=== PATIENT | female | born 1995 | race Caucasian/White ===

== ENCOUNTER → 2017-08-06 | Outpatient (CLI) | payer OTHER ==
--- NOTE | 2017-08-06 16:36 | XR ---
EXAMINATION TYPE: XR cervical spine w flex/ext DATE OF EXAM: 08/06/2017 COMPARISON: NONE HISTORY: Cervical radiculopathy TECHNIQUE: 5 view cervical spine supplemented with flexion and extension views FINDINGS: Neural foramen are patent. The prevertebral space is normal. Disc heights are preserved. Ve rtebral body heights are preserved. Posterior spinal lamellar line is intact. The body alignment is preserved through flexion and extension. The odontoid is limited with overlying occiput. IMPRESSION: 1. Normal cervical spine with additional flexion and extension views.
--- NOTE | 2017-08-06 16:36 | XR ---
EXAMINATION TYPE: XR soft tissue neck DATE OF EXAM: 08/06/2017 COMPARISON: NONE HISTORY: Cervical radiculopathy neck pain TECHNIQUE: Soft tissue neck and 2 views FINDINGS: Prevertebral space is normal. Epiglottis is normal. Subglottic airway is normal IMPRESSION: 1. Normal soft tissue neck
== END | disposition home or self-care (01) ==
LOC: RADXRMAIN 16:01
PROVIDERS: ATTEND Family Medicine
DX: M54.12 Radiculopathy, cervical region (principal)
CPT/HCPCS: 70360; 72052

== ENCOUNTER → 2017-09-04 | Outpatient (CLI) | payer OTHER ==
--- NOTE | 2017-09-04 09:00 | US ---
EXAMINATION TYPE: US mass soft tissue chest/back DATE OF EXAM: 09/04/2017 COMPARISON: NONE CLINICAL HISTORY: Fluid pocket base of the C-spine R60.9. Palpable lump at base of c spine, patient s tates it has been there her whole life. Midline upper back at palpable: appears wnl Images saved show normal dermis and subcutaneous fat. No worrisome solid or cystic mass or fluid shanda ection is identified. IMPRESSION: As above
== END | disposition home or self-care (01) ==
LOC: RADUSWWP 08:22
PROVIDERS: ATTEND Family Medicine
DX: R60.9 Edema, unspecified (principal)

== ENCOUNTER 2017-10-14 15:47 | Emergency (ER) | payer OTHER ==
[2017-10-14 16:04] VITALS: RESP 18
[2017-10-14] MEDS ORDERED: SODIUM CHLORIDE 0.9% 1,000 ML IV ONE (17:09)
--- NOTE | 2017-10-14 17:16 | ED ---
Female Urogenital HPI - General Chief complaint: Vaginal Bleeding Stated complaint: Dizzy Time Seen by Provider: 10/14/17 16:59 Source: patient Mode of arrival: ambulatory Limitations: no limitations - History of Present Illness Initial comments: 22-year-old female patient presents to the emergency department today with chief complaint of dizziness. The patient states that she woke up this morning and felt very dizzy. Patient states that it persisted for the day and made her concerned. She describes the dizziness as feeling unsteady like she is going to fall. She has had a headache and some mild blurred vision. States that she has been having vaginal bleeding since 09/22/2017. Patient states that the bleeding has been like a normal period, did lighten up for a couple of days, and became heavy again. Patient states her periods are usually irregular, but they have never gone beyond seven days. She reports mild cramping with the bleeding. Patient states that she has had some small clots but nothing unusual. Patient states that she stopped taking her control 4 months ago but had no problems. Patient denies any chance of . States that she has been very nauseous throughout the day. States she has had some issues with seasonal ALLERGIES but nothing significant. Patient denies any recent rash, fever, chills, shortness breath, chest pain, diarrhea, constipation, back pain, numbness, tingling, hematuria, dysuria, urinary urgency, urinary frequency, headache, visual changes, or any other complaints. Last Menstrual Period: 09/22/17 - Related Data Home Medications Medication Instructions Recorded Confirmed DULoxetine HCL [Cymbalta] 60 mg PO DAILY 01/14/16 01/14/16 Previous Rx's Medication Instructions Recorded Naproxen 500 mg PO Q12HR #20 tab 01/14/16 Allergies Allergy/AdvReac Type Severity Reaction Status Date / Time No Known Allergies Allergy Verified 10/14/17 16:04 Review of Systems ROS Statement: Those systems with pertinent positive or pertinent negative responses have been documented in the HPI. ROS Other: All systems not noted in ROS Statement are negative. Past Medical History Past Medical History: Fibromyalgia History of Any Multi-Drug Resistant Organisms: None Reported Past Surgical History: No Surgical Hx Reported Past Psychological History: Anxiety, Depression, Panic Disorder Smoking Status: Never smoker Past Alcohol Use History: None Reported Past Drug Use History: None Reported General Exam Limitations: no limitations General appearance: alert, in no apparent distress, other (This is a well- developed, well-nourished adult female patient in no acute distress. Vital signs upon presentation are temperature 98.4F, pulse 84, respirations 18, blood pressure 107/75, pulse ox 96% on room air.) Eye exam: Present: normal appearance, PERRL, EOMI, other (Pale conjunctiva). Absent: scleral icterus, conjunctival injection, periorbital swelling ENT exam: Present: normal exam, normal oropharynx, mucous membranes moist Respiratory exam: Present: normal lung sounds bilaterally. Absent: respiratory distress, wheezes, rales, rhonchi, stridor Cardiovascular Exam: Present: regular rate, normal rhythm, normal heart sounds. Absent: systolic murmur, diastolic murmur, rubs, gallop, clicks GI/Abdominal exam: Present: soft, normal bowel sounds. Absent: distended, tenderness, guarding, rebound, rigid Neurological exam: Present: alert, oriented X3, CN II-XII intact Psychiatric exam: Present: normal affect, normal mood Skin exam: Present: warm, dry, intact, normal color. Absent: rash Course Vital Signs 10/14/17 10/14/17 16:00 20:20 Temperature 98.4 F 98.3 F Pulse Rate 84 88 Respiratory 18 18 Rate Blood Pressure 107/75 110/70 O2 Sat by Pulse 96 98 Oximetry Medical Decision Making - Medical Decision Making 22-year-old female patient percents emergency department today for evaluation of vaginal bleeding and dizziness. Physical examination is relatively unremarkable. EKG showed normal sinus rhythm with a sinus arrhythmia. Labs reviewed and did reveal an elevated white blood cell count at 16.5. Urinalysis did show greater than 182 white blood cells, 50 white blood cells, occasional mucous. Patient had no cough however given patient's elevated white blood cell count did perform two-view x-ray of the chest, was negative for any acute abnormalities. Transvaginal ultrasound was obtained and showed no abnormalities. I did discuss findings and results with the patient. We did discuss hormonal cause for her prolonged uterine bleeding. She is instructed to follow-up with her primary care physician as well as her associate professor of biology for further evaluation. As for her elevated white blood cell count we did discuss possible stress of appetite ptosis however she was educated regarding signs or symptoms of infection and she is instructed to return if new symptoms develop. Return parameters were discussed in detail. She verbalizes understanding and agree with this plan. - Lab Data Result diagrams: 10/14/17 17:15 10/14/17 17:15 Lab Results 10/14/17 10/14/17 10/14/17 Range/Units 17:15 17:15 17:15 WBC 16.5 H (3.8-10.6) k/uL RBC 5.09 (3.80-5.40) m/uL Hgb 12.6 (11.4-16.0) gm/dL Hct 39.8 (34.0-46.0) % MCV 78.2 L (80.0-100.0) fL MCH 24.7 L (25.0-35.0) pg MCHC 31.6 (31.0-37.0) g/dL RDW 15.8 H (11.5-15.5) % Plt Count 332 (150-450) k/uL Neutrophils % 72 % Lymphocytes % 20 % Monocytes % 6 % Eosinophils % 1 % Basophils % 0 % Neutrophils # 11.9 H (1.3-7.7) k/uL Lymphocytes # 3.2 (1.0-4.8) k/uL Monocytes # 1.0 (0-1.0) k/uL Eosinophils # 0.2 (0-0.7) k/uL Basophils # 0.1 (0-0.2) k/uL Microcytosis Slight PT (9.0-12.0) sec INR (<1.2) APTT (22.0-30.0) sec Sodium 141 (137-145) mmol/L Potassium 4.0 (3.5-5.1) mmol/L Chloride 104 (98-107) mmol/L Carbon Dioxide 25 (22-30) mmol/L Anion Gap 12 mmol/L BUN 12 (7-17) mg/dL Creatinine 0.50 L (0.52-1.04) mg/dL Est GFR (CKD-EPI)AfAm >90 (>60 ml/min/1.73 sqM) Est GFR (CKD-EPI)NonAf >90 (>60 ml/min/1.73 sqM) Glucose 101 H (74-99) mg/dL Calcium 10.5 H (8.4-10.2) mg/dL Total Bilirubin 0.3 (0.2-1.3) mg/dL AST 19 (14-36) U/L ALT 33 (9-52) U/L Alkaline Phosphatase 84 (38-126) U/L Total Protein 8.2 (6.3-8.2) g/dL Albumin 4.6 (3.5-5.0) g/dL Urine Color Urine Appearance (Clear) Urine pH (5.0-8.0) Ur Specific [place] (1.001-1.035) Urine Protein (Negative) Urine Glucose (UA) (Negative) Urine Ketones (Negative) Urine Blood (Negative) Urine Nitrite (Negative) Urine Bilirubin (Negative) Urine Urobilinogen (<2.0) mg/dL Ur Leukocyte Esterase (Negative) Urine RBC (0-5) /hpf Urine WBC (0-5) /hpf Ur Squamous Epith Cells (0-4) /hpf Urine Mucus (None) /hpf Urine HCG, Qual Not Detected (Not Detectd) 10/14/17 10/14/17 Range/Units 17:15 17:15 WBC (3.8-10.6) k/uL RBC (3.80-5.40) m/uL Hgb (11.4-16.0) gm/dL Hct (34.0-46.0) % MCV (80.0-100.0) fL MCH (25.0-35.0) pg MCHC (31.0-37.0) g/dL RDW (11.5-15.5) % Plt Count (150-450) k/uL Neutrophils % % Lymphocytes % % Monocytes % % Eosinophils % % Basophils % % Neutrophils # (1.3-7.7) k/uL Lymphocytes # (1.0-4.8) k/uL Monocytes # (0-1.0) k/uL Eosinophils # (0-0.7) k/uL Basophils # (0-0.2) k/uL Microcytosis PT 9.6 (9.0-12.0) sec INR 1.0 (<1.2) APTT 25.0 (22.0-30.0) sec Sodium (137-145) mmol/L Potassium (3.5-5.1) mmol/L Chloride (98-107) mmol/L Carbon Dioxide (22-30) mmol/L Anion Gap mmol/L BUN (7-17) mg/dL Creatinine (0.52-1.04) mg/dL Est GFR (CKD-EPI)AfAm (>60 ml/min/1.73 sqM) Est GFR (CKD-EPI)NonAf (>60 ml/min/1.73 sqM) Glucose (74-99) mg/dL Calcium (8.4-10.2) mg/dL Total Bilirubin (0.2-1.3) mg/dL AST (14-36) U/L ALT (9-52) U/L Alkaline Phosphatase (38-126) U/L Total Protein (6.3-8.2) g/dL Albumin (3.5-5.0) g/dL Urine Color Yellow Urine Appearance Clear (Clear) Urine pH 6.0 (5.0-8.0) Ur Specific [place] 1.022 (1.001-1.035) Urine Protein Trace H (Negative) Urine Glucose (UA) Negative (Negative) Urine Ketones Negative (Negative) Urine Blood Large H (Negative) Urine Nitrite Negative (Negative) Urine Bilirubin Negative (Negative) Urine Urobilinogen <2.0 (<2.0) mg/dL Ur Leukocyte Esterase Negative (Negative) Urine RBC >182 H (0-5) /hpf Urine WBC 50 H (0-5) /hpf Ur Squamous Epith Cells 1 (0-4) /hpf Urine Mucus Occasional H (None) /hpf Urine HCG, Qual (Not Detectd) - Radiology Data Radiology results: report reviewed, image reviewed Transvaginal ultrasound was obtained. Report was reviewed in its entirety. Impression by Dr. Avery shows no adnexal mass or free fluid. Normal uterus and endometrium. Two-view x-ray of the chest is obtained. Heart media's enema normal. Lungs are clear. Diaphragm is normal. Bony thorax appears normal. Impression by Dr. Avery shows normal chest. Disposition Clinical Impression: Dysfunctional uterine bleeding Narrative: Stress Leukocytosis Disposition: HOME SELF-CARE Condition: Good Instructions: Dysfunctional Uterine Bleeding (ED), Leukocytosis (ED) Additional Instructions: Increase fluids. Follow-up with your primary care physician for recheck as soon as possible. Return here immediately for any new, worsening, or concerning symptoms per Is patient prescribed a controlled substance at d/c from ED?: No Referrals: Nonstaff,Physician [Primary Care Provider] - 1-2 days Time of Disposition: 19:56
[2017-10-14 17:35] LABS: Basophils # (A) 0.1 k/uL (0-0.2); Basophils % (A) 0 %; Eosinophils # (A) 0.2 k/uL (0-0.7); Eosinophils % (A) 1 %; HCT 39.8 % (34.0-46.0); HGB 12.6 gm/dL (11.4-16.0); Lymphocytes # (A) 3.2 k/uL (1.0-4.8); Lymphocytes % (A) 20 %; MCH 24.7 pg (25.0-35.0); MCHC 31.6 g/dL (31.0-37.0); MCV 78.2 fL (80.0-100.0); Mean Platelet Volume 7.2; Microcytosis Slight; Monocytes % (A) 6 %; Neutrophils # (A) 11.9 k/uL (1.3-7.7); Neutrophils % (A) 72 %; Platelet Count 332 k/uL (150-450); RBC 5.09 m/uL (3.80-5.40); RDW 15.8 % (11.5-15.5); WBC 16.5 k/uL (3.8-10.6)
[2017-10-14 17:38] LABS: ALT 33 U/L (9-52); AST 19 U/L (14-36); Albumin 4.6 g/dL (3.5-5.0); Alkaline Phosphatase 84 U/L (38-126); Anion Gap 12 mmol/L; Blood Urea Nitrogen 12 mg/dL (7-17); Calcium 10.5 mg/dL (8.4-10.2); Carbon Dioxide 25 mmol/L (22-30); Chloride 104 mmol/L (98-107); Glucose 101 mg/dL (74-99); Sodium 141 mmol/L (137-145); Total Bilirubin 0.3 mg/dL (0.2-1.3); Total Protein 8.2 g/dL (6.3-8.2)
[2017-10-14 17:39] LABS: Prothrombin Time 9.6 sec (9.0-12.0)
[2017-10-14 18:15] LABS: Appearance,Urine Clear (Clear); Bilirubin,Urine Negative (Negative); Blood,Urine Large (Negative); Color,Urine Yellow; Glucose,Urine (UA) Negative (Negative); Ketones,Urine Negative (Negative); Leukocyte Esterase,Urine Negative (Negative); Mucus,Urine Occasional /hpf; Nitrite,Urine Negative (Negative); Protein,Urine Trace (Negative); RBC,Urine >182 /hpf (0-5); Specific Gravity,Urine 1.022 (1.001-1.035); Squamous Epithelial Cell,Urine 1 /hpf (0-4); Urobilinogen,Urine <2.0 mg/dL (<2.0); WBC,Urine 50 /hpf (0-5)
--- NOTE | 2017-10-14 18:54 | XR ---
EXAMINATION TYPE: XR chest 2V DATE OF EXAM: 10/14/2017 COMPARISON: NONE HISTORY: Dizziness TECHNIQUE: Frontal and lateral views of the chest are obtained. FINDINGS: Heart and mediastinum are normal. Lungs are clear. Diaphragm is normal. Bony thorax appear s normal. IMPRESSION: Normal chest.
--- NOTE | 2017-10-14 18:54 | US ---
EXAMINATION TYPE: US transvaginal DATE OF EXAM: 10/14/2017 COMPARISON: NONE CLINICAL HISTORY: Pain. Abnormal bleeding TECHNIQUE: Transvaginal (TV). EXAM MEASUREMENTS: Uterus: 7.4 x 3.9 x 4.8 cm Endometrial Stripe: 0.4 cm Right Ovary: 2.4 x 1.5 x 1.3 cm 1. Uterus: Anteverted wnl 2. Endometrium: wnl 3. Right Ovary: wnl 4. Left Ovary: Obscured by overlying bowel gas Spectral, color and waveform doppler imaging shows good arterial and venous flow within the right o vary; there is no evidence for ovarian torsion. 5. Bilateral Adnexa: wnl 6. Posterior cul-de-sac: wnl IMPRESSION: No adnexal mass or free fluid. Normal uterus and endometrium.
[2017-10-14 20:24] VITALS: BP 110/70; PULSE 88; TEMP 98.3
== END 2017-10-14 20:20 | disposition home or self-care (01) ==
LOC: SUPCPDRO 15:47 → EC 15:47
DX: N93.8 Other specified abnormal uterine and vaginal bleeding (principal); R42 Dizziness and giddiness; H53.8 Other visual disturbances; M79.7 Fibromyalgia; F41.9 Anxiety disorder, unspecified; F32.9 Major depressive disorder, single episode, unspecified; Z79.899 Other long term (current) drug therapy
CPT/HCPCS: 36415; 71046; 76830; 80053; 81001; 81025; 85025; 85610; 85730; 93005; 93976; 96360; 96361; 99284

== ENCOUNTER → 2018-06-02 | Outpatient (CLI) | payer OTHER ==
[2018-06-02 16:33] LABS: Basophils % (A) 0 %; Eosinophils # (A) 0.2 k/uL (0-0.7); Eosinophils % (A) 2 %; HCT 41.1 % (34.0-46.0); HGB 12.7 gm/dL (11.4-16.0); Lymphocytes # (A) 2.5 k/uL (1.0-4.8); Lymphocytes % (A) 23 %; MCH 25.6 pg (25.0-35.0); MCV 82.6 fL (80.0-100.0); Mean Platelet Volume 7.8; Monocytes # (A) 0.6 k/uL (0-1.0); Monocytes % (A) 6 %; Neutrophils # (A) 7.3 k/uL (1.3-7.7); Neutrophils % (A) 67 %; Platelet Count 331 k/uL (150-450); RBC 4.98 m/uL (3.80-5.40); WBC 10.9 k/uL (3.8-10.6)
[2018-06-02 23:09] LABS: ALT 19 U/L (8-44); AST 21 U/L (13-35); Albumin/Globulin Ratio 1.92 (1.60-3.17); Alkaline Phosphatase 72 U/L (41-126); Bilirubin, Conjugated <0.20 mg/dL (0.20-0.40); Cholesterol 174 mg/dL (0-200); Globulin 2.5 g/dL (1.6-3.3); Glucose 94 mg/dL (70-110); Total Bilirubin 0.1 mg/dL (0.3-1.2); Total Protein 7.3 g/dL (6.2-8.2)
[2018-06-02 23:27] LABS: Hemoglobin A1C 5.7 % (4.0-6.0)
== END | disposition home or self-care (01) ==
LOC: LABWHC1 15:24
PROVIDERS: ATTEND Nurse Practitioner Family
DX: Z51.81 Encounter for therapeutic drug level monitoring (principal); Z79.899 Other long term (current) drug therapy
CPT/HCPCS: 36415; 80061; 80076; 82565; 82947; 83036; 84439; 84443; 84520; 85025

== ENCOUNTER → 2018-12-30 | Outpatient (CLI) | payer OTHER ==
[2018-12-30 14:19] LABS: Basophils % (A) 0 %; Eosinophils # (A) 0.1 k/uL (0-0.7); Eosinophils % (A) 1 %; HGB 12.7 gm/dL (11.4-16.0); Lymphocytes # (A) 2.3 k/uL (1.0-4.8); Lymphocytes % (A) 26 %; MCH 25.3 pg (25.0-35.0); MCHC 31.7 g/dL (31.0-37.0); Mean Platelet Volume 7.1; Monocytes # (A) 0.5 k/uL (0-1.0); Monocytes % (A) 6 %; Neutrophils # (A) 5.9 k/uL (1.3-7.7); Neutrophils % (A) 66 %; Platelet Count 295 k/uL (150-450); RDW 14.1 % (11.5-15.5); WBC 8.9 k/uL (3.8-10.6)
[2018-12-30 20:04] LABS: DHEA Sulfate 255.4 ug/dL (26.0-430.0)
[2018-12-30 20:13] LABS: Albumin 4.7 g/dL (3.80-4.90); Albumin/Globulin Ratio 2.24 (1.60-3.17); Calcium 9.8 mg/dL (8.7-10.3); Globulin 2.1 g/dL (1.6-3.3); Potassium 4.3 mmol/L (3.5-5.5); Total Bilirubin 0.2 mg/dL (0.3-1.2); Total Protein 6.8 g/dL (6.2-8.2)
[2018-12-30 20:22] LABS: Prolactin 13.4 ng/mL (2.8-29.2)
[2018-12-30 20:23] LABS: Estradiol 208.4 pg/mL
[2018-12-30 21:10] LABS: Progesterone 0.4 ng/mL
[2018-12-30 21:19] LABS: Hemoglobin A1C 5.3 % (4.0-6.0)
== END | disposition home or self-care (01) ==
LOC: LABWHC1 12:52
PROVIDERS: ATTEND Obstetrics & Gynecology Obstetrics
DX: R10.2 Pelvic and perineal pain (principal); N92.6 Irregular menstruation, unspecified; E28.2 Polycystic ovarian syndrome
CPT/HCPCS: 36415; 80053; 82627; 82670; 83036; 84144; 84146; 84403; 84443; 85025

== ENCOUNTER → 2020-05-17 | Outpatient (CLI) | payer OTHER | END | disposition home or self-care (01) | LOC: LABWHC1 14:26 | PROVIDERS: ATTEND Nurse Practitioner Family | DX: Z79.899 Other long term (current) drug therapy (principal) | CPT/HCPCS: 93005 ==

== ENCOUNTER → 2020-06-08 | Outpatient (CLI) | payer OTHER ==
[2020-06-08 19:21] LABS: Basophils # (A) 0.03 X 10*3/uL (0.00-0.10); Basophils % (A) 0.3 %; Eosinophils # (A) 0.06 X 10*3/uL (0.04-0.35); Eosinophils % (A) 0.5 %; HCT 39.1 % (37.2-46.3); HGB 12.2 g/dL (12.0-15.0); Lymphocytes # (A) 2.63 X 10*3/uL (0.90-5.00); Lymphocytes % (A) 24.1 %; MCH 26.2 pg (27.0-32.0); MCHC 31.2 g/dL (32.0-37.0); MCV 84.1 fL (80.0-97.0); Mean Platelet Volume 11.6 fL (9.5-12.2); Monocytes # (A) 0.75 X 10*3/uL (0.20-1.00); Monocytes % (A) 6.9 %; Neutrophils % (A) 67.8 %; Platelet Count 279 X 10*3/uL (140-440); RBC 4.65 X 10*6/uL (4.10-5.20); RDW 13.7 % (11.5-14.5); WBC 10.91 X 10*3/uL (4.50-10.00)
[2020-06-08 20:49] LABS: Hemoglobin A1C 5.7 % (4.0-6.0)
[2020-06-09 03:55] LABS: ALT 19 U/L (8-44); AST 20 U/L (13-35); African American GFR (CKD) 140.6 (60.0-200.0); Albumin/Globulin Ratio 2.24 (1.60-3.17); Alkaline Phosphatase 73 U/L (41-126); Bilirubin, Conjugated <0.20 mg/dL (0.20-0.40); Chol/HDL Ratio 3.35; Cholesterol 184 mg/dL (0-200); Globulin 2.1 g/dL (1.6-3.3); Glucose 83 mg/dL (70-110); LDL Cholesterol,Calculated 86.2 mg/dL (0.0-131.0); Non-African American GFR(CKD) 121.3 (60.0-200.0); Total Bilirubin 0.2 mg/dL (0.2-1.2); Total Protein 6.8 g/dL (6.2-8.2)
== END | disposition home or self-care (01) ==
LOC: LABWHC1 10:39
PROVIDERS: ATTEND Nurse Practitioner Family
DX: Z79.899 Other long term (current) drug therapy (principal)
CPT/HCPCS: 36415; 80061; 80076; 82565; 82947; 83036; 84439; 84443; 84520; 85025

== ENCOUNTER → 2020-12-14 | Outpatient (CLI) | payer OTHER | END | disposition home or self-care (01) | LOC: LABWHC1 13:37 | PROVIDERS: ATTEND Nurse Practitioner Family | DX: Z79.899 Other long term (current) drug therapy (principal) | CPT/HCPCS: 36415; 80175 ==

== ENCOUNTER → 2021-06-06 | Outpatient (CLI) | payer OTHER ==
[2021-06-06 14:35] LABS: Basophils # (A) 0.01 X 10*3/uL (0.00-0.10); Basophils % (A) 0.1 %; Eosinophils # (A) 0.03 X 10*3/uL (0.04-0.35); Eosinophils % (A) 0.3 %; HCT 40.2 % (37.2-46.3); HGB 12.5 g/dL (12.0-15.0); Immature Grans, Automated 0.5 %; Lymphocytes # (A) 2.36 X 10*3/uL (0.90-5.00); Lymphocytes % (A) 26.6 %; MCH 25.7 pg (27.0-32.0); MCHC 31.1 g/dL (32.0-37.0); MCV 82.5 fL (80.0-97.0); Mean Platelet Volume 11.3 fL (9.5-12.2); Monocytes # (A) 0.68 X 10*3/uL (0.20-1.00); Monocytes % (A) 7.7 %; NRBC Per 100 WBC 0 /100 WBCS (0.0-0.0); Neutrophils # (A) 5.74 X 10*3/uL (1.80-7.70); Neutrophils % (A) 64.8 %; Platelet Count 288 X 10*3/uL (140-440); RBC 4.87 X 10*6/uL (4.10-5.20); RDW 14.1 % (11.5-14.5); WBC 8.86 X 10*3/uL (4.50-10.00)
[2021-06-06 14:56] LABS: ALT 12 U/L (8-44); AST 13 U/L (13-35); African American GFR (CKD) 145.2 (60.0-200.0); Albumin 4.4 g/dL (3.8-4.9); Albumin/Globulin Ratio 1.32 (1.60-3.17); Alkaline Phosphatase 70 U/L (41-126); Bilirubin, Conjugated <0.20 mg/dL (0.20-0.40); Blood Urea Nitrogen 8.5 mg/dL (9.0-27.0); Globulin 3.3 g/dL (1.6-3.3); Glucose 101 mg/dL (70-110); LDL Cholesterol,Calculated 76.3 mg/dL (0.0-131.0); Non-African American GFR(CKD) 125.3 (60.0-200.0); Total Protein 7.7 g/dL (6.2-8.2)
== END | disposition home or self-care (01) ==
LOC: LABWHC1 09:28
PROVIDERS: ATTEND Nurse Practitioner Family
DX: Z79.899 Other long term (current) drug therapy (principal)
CPT/HCPCS: 36415; 80061; 80076; 80175; 82565; 82947; 83036; 84439; 84443; 84520; 85025

== ENCOUNTER 2022-06-08 19:18 | Emergency (ER) | payer OTHER ==
[2022-06-08] MEDS ORDERED: METOCLOPRAMIDE 10 MG TAB PO STA (19:54)
[2022-06-08] MEDS ORDERED: ORPHENADRINE 30 MG/ML 2 ML VIAL IM STA (19:54)
[2022-06-08] MEDS ORDERED: KETOROLAC 15 MG/ML 1 ML VIAL IM STA (19:54)
--- NOTE | 2022-06-08 20:37 | ED ---
Headache HPI - General Chief Complaint: Headache Stated Complaint: HEAD INJURY Time Seen by Provider: 06/08/22 19:44 Mode of arrival: ambulatory Limitations: no limitations - History of Present Illness Initial Comments: Patient is a 27-year-old female presenting with chief complaint of headache. Patient states that yesterday she hit the back of her head on a rocking chair. There was no loss of consciousness, no blood thinners. Patient has had a headache and near the area of impact ever since. No vomiting, dizziness, vision or hearing changes, numbness, tingling, weakness. Patient took an ibuprofen after the incident and earlier this morning. - Related Data Home Medications Medication Instructions Recorded Confirmed DULoxetine HCL [Cymbalta] 60 mg PO DAILY 01/14/16 01/14/16 Previous Rx's Medication Instructions Recorded Naproxen 500 mg PO Q12HR #20 tab 01/14/16 Allergies Allergy/AdvReac Type Severity Reaction Status Date / Time mint Allergy Nausea & Verified 06/08/22 19:43 Vomiting nickel Allergy Rash/Hives Verified 06/08/22 19:43 Review of Systems ROS Statement: Those systems with pertinent positive or pertinent negative responses have been documented in the HPI. ROS Other: All systems not noted in ROS Statement are negative. Past Medical History Past Medical History: Fibromyalgia Additional Past Medical History / Comment(s): autism History of Any Multi-Drug Resistant Organisms: None Reported Past Surgical History: No Surgical Hx Reported Past Psychological History: Anxiety, Depression, Panic Disorder Past Alcohol Use History: None Reported Past Drug Use History: None Reported General Exam Limitations: no limitations General appearance: alert, in no apparent distress Head exam: Present: atraumatic, normocephalic, normal inspection Eye exam: Present: normal appearance, PERRL, EOMI. Absent: periorbital swelling Pupils: Present: normal accommodation Neck exam: Present: normal inspection, tenderness (Paraspinal muscle tenderness, no midline tenderness), full ROM Neurological exam: Present: alert, oriented X3, CN II-XII intact Expanded Patient oriented to: Present: person, place, time Speech: Present: fluid speech Cranial nerves: EOM's Intact: Normal Eye Response: (4) open spontaneously Motor Response: (6) obeys commands Verbal Response: (5) oriented [place] Total: 15 Psychiatric exam: Present: normal affect, normal mood Skin exam: Present: warm, dry, intact, normal color. Absent: rash Course Vital Signs 06/08/22 06/08/22 19:39 21:30 Temperature 98 F 98.8 F Pulse Rate 95 88 Respiratory 16 18 Rate Blood Pressure 141/86 123/80 O2 Sat by Pulse 97 96 Oximetry Medical Decision Making - Medical Decision Making Was pt. sent in by a medical professional or institution (, SO[facility], BRAZING MACHINE TENDER, urgent care, hospital, or prison...) When possible be specific @ -No Did you speak to anyone other than the patient for history (EMS, parent, family, police, friend...)? What history was obtained from this source @ -No Did you review nursing and triage notes (agree or disagree)? Why? @ -I reviewed and agree with nursing and triage notes Were old charts reviewed (outside hosp., previous admission, EMS record, old EKG, old radiological studies, urgent care reports/EKG's, prison records)? Report findings @ -No old charts were reviewed Differential Diagnosis (chest pain, altered mental status, abdominal pain women, abdominal pain men, vaginal bleeding, weakness, fever, dyspnea, syncope, headache, dizziness, GI bleed, back pain, seizure, CVA, palpatations, mental health, musculoskeletal)? @ -MDM Differential Headache: Migraine, tension, cluster, carbon monoxide, central venous thrombosis, pension karma temporal arteritis, acute closure glaucoma, intercranial hemorrhage, mastoiditis, sinusitis, head injury this is not meant to be an all-inclusive list. EKG interpreted by me (3pts min.). @ -As above X-rays interpreted by me (1pt min.). @ -None done CT interpreted by me (1pt min.). @ -None done U/S interpreted by me (1pt. min.). @ -None done What testing was considered but not performed or refused? (CT, X-rays, U/S, labs)? Why? @ -None What meds were considered but not given or refused? Why? @ -None Did you discuss the management of the patient with other professionals (professionals i.e. SOFI[facility] [place], BRAZING MACHINE TENDER, lab, RT, psych nurse, social services counselor, first coat operator, teacher, special technical operations officer, director of casework)? Give summary @ -No Was smoking cessation discussed for >3mins.? @ -No Was critical care preformed (if so, how long)? @ -No Were there social determinants of health that impacted care today? How? (Homelessness, low income, unemployed, alcoholism, drug addiction, transportation, low edu. Level, literacy, decrease access to med. care, penitentiary, rehab)? @ -No Was there de-escalation of care discussed even if they declined (Discuss DNR or withdrawal of care, Hospice)? DNR status @ -No What co-morbidities impacted this encounter? (DM, HTN, Smoking, COPD, CAD, Cancer, CVA, ARF, Chemo, Hep., AIDS, mental health diagnosis, sleep apnea, morbid obesity)? @ -None Was patient admitted / discharged? Hospital course, mention meds given and route, prescriptions, significant lab abnormalities, going to OR and other pertinent info. @ -Discharge. Patient is a 27-year-old female presenting with chief complaint of headache. Patient hit her head on the back of a rocking chair yesterday. No loss of consciousness or blood thinners. On physical examination no focal neurological deficits. Patient was given migraine cocktail. On reassessment she reports improvement in her symptoms. Educated on supportive treatment at home. Follow-up with PCP. Report back to ER with any new or worsening symptoms. Discussed return parameters and answered all questions. Patient conveyed verbal understanding and agreed to the plan. I discussed this case in detail with my attending Dr. Mo[place] Undiagnosed new problem with uncertain prognosis? @ -No Drug Therapy requiring intensive monitoring for toxicity (Heparin, Nitro, Insulin, Cardizem)? @ -No Were any procedures done? @ -No Diagnosis/symptom? @ -Headache Acute, or Chronic, or Acute on Chronic? @ -Acute Uncomplicated (without systemic symptoms) or Complicated (systemic symptoms)? @ -Uncomplicated Side effects of treatment? @ -No Exacerbation, Progression, or Severe Exacerbation? @ -No Poses a threat to life or bodily function? How? (Chest pain, [place], [place], pneumonia, PE, COPD, DKA, ARF, appy, cholecystitis, CVA, Diverticulitis, Homicidal, Suicidal, threat to staff... and all critical care pts) @ -No Disposition Clinical Impression: Headache Disposition: HOME SELF-CARE Condition: Good Instructions (If sedation given, give patient instructions): Head Injury (ED), Acute Headache (ED) Additional Instructions: Follow-up with PCP. Report back to ER with any new or worsening symptoms. Take Motrin and Tylenol the for pain control. Is patient prescribed a controlled substance at d/c from ED?: No Referrals: René Sutherland MD [Primary Care Provider] - 1-2 days Time of Disposition: 21:03
[2022-06-08 21:32] VITALS: BP 123/80; PULSE 88; RESP 18; TEMP 98.8
== END 2022-06-08 21:34 | disposition home or self-care (01) ==
LOC: EC 19:18
DX: R51.9 Headache, unspecified (principal); Z91.018 Allergy to other foods
CPT/HCPCS: 99283; 96372 ×2; J2360; J1885

== ENCOUNTER → 2022-06-25 | Outpatient (CLI) | payer OTHER ==
--- NOTE | 2022-06-25 10:08 | XR ---
EXAMINATION TYPE: XR cervical spine limited DATE OF EXAM: 06/25/2022 10:03 AM INDICATION: Patient age:Female; 27 years old; Reason for study: M54.2; [facility]. COMPARISON: Soft tissue neck radiograph 08/06/2017, cervical spine radiographs 08/06/2018 TECHNIQUE: The cervical spine was imaged in odontoid, frontal, lateral, and swimmer's projections. FINDINGS: The osseous structures show normal alignment without evidence of an acute fracture. Anterior osteophy te at C5-C6. The intervertebral disk spaces are preserved. Pedicles are intact. Soft tissues are wi thin normal limits. The odontoid appears intact. IMPRESSION: 1. No fracture or dislocation. 2. Minimal degenerative disc disease at C5-C6.
[2022-06-25 15:15] LABS: Basophils # (A) 0.01 X 10*3/uL (0.00-0.10); Basophils % (A) 0.1 %; Eosinophils # (A) 0.03 X 10*3/uL (0.04-0.35); Eosinophils % (A) 0.3 %; HCT 38.5 % (37.2-46.3); HGB 12.3 g/dL (12.0-15.0); Immature Grans, Automated 0.8 %; Lymphocytes # (A) 2.65 X 10*3/uL (0.90-5.00); Lymphocytes % (A) 27.3 %; MCH 25.7 pg (27.0-32.0); MCHC 31.9 g/dL (32.0-37.0); MCV 80.5 fL (80.0-97.0); Mean Platelet Volume 11.3 fL (9.5-12.2); Monocytes # (A) 0.83 X 10*3/uL (0.20-1.00); Monocytes % (A) 8.5 %; NRBC Per 100 WBC 0 /100 WBCS (0.0-0.0); Neutrophils # (A) 6.11 X 10*3/uL (1.80-7.70); Platelet Count 285 X 10*3/uL (140-440); RBC 4.78 X 10*6/uL (4.10-5.20); RDW 14.7 % (11.5-14.5); WBC 9.71 X 10*3/uL (4.50-10.00)
[2022-06-25 15:57] LABS: ALT 13 U/L (8-44); AST 15 U/L (13-35); African American GFR (CKD) 145.9 (60.0-200.0); Albumin 4.2 g/dL (3.8-4.9); Albumin/Globulin Ratio 1.43 (1.60-3.17); Alkaline Phosphatase 68 U/L (41-126); Bilirubin, Conjugated <0.20 mg/dL (0.20-0.40); Blood Urea Nitrogen 8.1 mg/dL (9.0-27.0); Chol/HDL Ratio 3.29 Ratio; Glucose 92 mg/dL (70-110); LDL Cholesterol,Calculated 67.7 mg/dL (0.0-131.0); Non-African American GFR(CKD) 125.9 (60.0-200.0); Total Bilirubin <0.15 mg/dL (0.30-1.20); Total Protein 7.2 g/dL (6.2-8.2)
== END | disposition home or self-care (01) ==
LOC: LABWHC1 08:54
PROVIDERS: ATTEND Nurse Practitioner Family
DX: M50.322 Other cervical disc degeneration at C5-C6 level (principal); Z79.899 Other long term (current) drug therapy
CPT/HCPCS: 36415; 72040; 80061; 80076; 80175; 82565; 82947; 83036; 84439; 84443; 84520; 85025

== ENCOUNTER → 2023-09-09 | Outpatient (CLI) | payer OTHER ==
[2023-09-09 15:10] LABS: HCT 39.1 % (37.2-46.3); HGB 12.3 g/dL (12.0-15.0); MCH 26.2 pg (27.0-32.0); MCHC 31.5 g/dL (32.0-37.0); MCV 83.4 FL (80.0-97.0); Mean Platelet Volume 11.5 FL (9.5-12.2); NRBC Per 100 WBC 0 X 10*3/uL (0.00-0.01); Platelet Count 281 X 10*3/uL (140-440); RBC 4.69 X 10*6/uL (4.10-5.20); RDW 14.2 % (11.5-14.5); WBC 9.03 X 10*3/uL (4.50-10.00)
[2023-09-09 15:34] LABS: ALT 15 U/L (8-44); AST 17 U/L (13-35); Albumin 4.5 g/dL (3.8-4.9); Alkaline Phosphatase 72 U/L (41-126); BUN/Creat Ratio 12.14 Ratio (12.00-20.00); Blood Urea Nitrogen 8.5 mg/dL (9.0-27.0); Calcium 9.9 mg/dL (8.7-10.3); Carbon Dioxide 22.7 mmol/L (21.6-31.8); Chloride 101 mmol/L (96-109); Chol/HDL Ratio 3.39 Ratio; Glucose 99 mg/dL (70-110); LDL Cholesterol,Calculated 62.3 mg/dL (0.0-131.0); Sodium 138 mmol/L (135-145); Total Bilirubin 0.2 mg/dL (0.3-1.2); Total Protein 7.5 g/dL (6.2-8.2)
== END | disposition home or self-care (01) ==
LOC: LABWHC1 09:38
PROVIDERS: ATTEND Family Medicine
DX: K21.9 Gastro-esophageal reflux disease without esophagitis (principal); J35.8 Other chronic diseases of tonsils and adenoids; M79.7 Fibromyalgia; R73.03 Prediabetes; R53.83 Other fatigue
CPT/HCPCS: 36415; 80053; 80061; 82306; 82607; 83036; 85027